=== PATIENT | female | born 1985 | race Caucasian/White ===

== ENCOUNTER 2017-12-17 13:59 | Emergency (ER) | payer OTHER ==
[~2017-12-17] VITALS: Ht 167.6 cm; Wt 87.5 kg
[~2017-12-17 13:59] MED LIST: ACETAMINOPHEN325 M1 PO; ADDERALL 20 MG20 M1 PO; AMOXICILLIN 50500 M1 PO; BUPROPION; CELEXA 20 MG TA20 M1; CLONAZEPAM; CLONAZEPAM PO; COUMADIN 5 MG TA5 M1 PO; ENOXAPARIN40 MG/0.1; FLEXERIL PO; HYDROCODON-ACE1 EACH PO; HYDROCODONE-AP1 EAC6 PO; HYDROCODONE-APA1 TA1 PO; IBUPROFEN 800800 M1 PO; KEFLEX500 MG PO; LEXAPRO 10 MG T10 MG PO; LEXAPRO20 MG; MAXALT MLT5 MG PO; NOHOMEMEDICATIONS; NORCO 5-325 TA1 EACH PO; NUCYNTA50 MG PO; ORADENT 0.1% DEN5 G1; OXYCODONE; PAXIL10 MG; PHENTERMINE H37.5 MG; ROBAXIN500 MG PO; TRAMADOL; TRAMADOL 50 MG50 MG; TRAMADOL 50 MG50 MG PO; ULTRAM 50MG TAB50 MG PO; VICODIN 5-5001 EACH PO; VICOPROFEN 2001 EACH PO; VITAMIN D-32000 UNIT PO; XANAX 0.5 MG0.5 MG PO; XANAX 1 MG TABLE1 MG PO; XANAX1 MG; ZANTAC 150MG T150 M1 PO; ZANTAC 150MG T150 MG PO
[2017-12-17 14:16] VITALS: BP 137/70
[2017-12-17] MEDS ORDERED: CYCLOBENZAPRINE5 MG PO (14:22)
[2017-12-17] MEDS ORDERED: IBUPROFEN 800800 M1 PO ×2 (14:22→14:30)
[2017-12-17] MEDS ORDERED: PENICILLIN VK500 MG PO (14:30)
== END 2017-12-17 15:11 | disposition home or self-care (01) ==
LOC: M.ERS 13:59
DX: K04.7 Periapical abscess without sinus (principal); G43.909 Migraine, unspecified, not intractable, without status migrainosus; Z90.710 Acquired absence of both cervix and uterus; M54.30 Sciatica, unspecified side